=== PATIENT | female | born 1990 | race Asian ===

== ENCOUNTER 2024-12-30 09:48 | Emergency (ER) | payer BC ==
[~2024-12-30] VITALS: Ht 154.9 cm; Wt 68.0 kg
[2024-12-30 10:11] VITALS: O2SAT 96
[2024-12-30 10:33] LABS: BASOPHILS % 0.7 % (0.0-2.0); EOSINOPHILS % 1.6 % (0.0-5.0); HEMATOCRIT. 39.4 % (36.0-48.0); HEMOGLOBIN. 13.3 g/dL (12.0-16.0); LYMPHOCYTES % 20.7 % (20.0-50.0); MEAN PLATELET VOLUME 7.9 fl (7.4-10.4); MONOCYTES % 7.7 % (2.0-8.0); NEUTROPHILS % 69.3 % (40.0-76.0); PLATELET 255 x1000/uL (130-400); RED BLOOD CELL COUNT 4.37 mill/uL (4.2-5.4); RED CELL DISTRIBUTION WIDTH 13.0 % (11.6-14.6)
[2024-12-30 10:47] LABS: CREATININE 0.7 mg/dL (0.6-1.0); UREA NITROGEN BLOOD 11 mg/dL (9-23)
[2024-12-30 10:48] LABS: TROPONIN I HIGH SENSITIVITY < 4 ng/L (3.0-34)
[2024-12-30 12:00] VITALS: BP 110/62; PULSE 72; RESP 16; TEMP 36.7; O2SAT 100
== END 2024-12-30 12:01 | disposition home or self-care (01) ==
LOC: ER 09:48
DX: R07.89 Other chest pain (principal); Z88.3 Allergy status to other anti-infective agents
CPT/HCPCS: 36415; 71045; 80048; 84484; 85025; 93005; 99285